=== PATIENT | female | born 1950 | race African-American/Black ===

== ENCOUNTER 2021-03-21 16:48 | Emergency (ER) | payer MEDICARE ==
[~2021-03-21] VITALS: Ht 170.2 cm; Wt 59.0 kg
== END 2021-03-21 17:58 | disposition home or self-care (01) ==
LOC: FSED 17:13
DX: R05 Cough (principal); J01.90 Acute sinusitis, unspecified; I10 Essential (primary) hypertension
CPT/HCPCS: 99282